=== PATIENT | male | born 1945 ===

== ENCOUNTER 2018-01-04 17:50 | Inpatient (IN) | payer OTHER ==
[2018-01-04 17:50] VITALS: BMI 41.5
[2018-01-04] MEDS ORDERED: Sodium Chloride 0.9% 500 ML IV ONE (18:33)
--- NOTE | 2018-01-04 18:37 | C.PDOC ---
History Of Present Illness 72 year old male, whose PMHx includes CHF and Atrial Fibrillation (currently on Coumadin), presents to the ED for evaluation of dizziness and near-syncopal episode which began today. Patient states he is lightheaded and feels like he is going to "pass out." Patient denies pain, blood in stool, fever, chills, cough. History is limited because patient is a poor historian. Time Seen by Provider: 01/04/18 18:09 Chief Complaint (Nursing): Dizziness/Lightheaded History Per: Patient History/Exam Limitations: no limitations, other (poor historian ) Onset/Duration Of Symptoms: Hrs Associated Symptoms Preceding Syncopal Episode: No Predromal Symptoms (Sudden Onset) Additional History Per: Patient Past Medical History Reviewed: Historical Data, Nursing Documentation, Vital Signs Vital Signs: Last Vital Signs Temp 98.1 F 01/04/18 23:09 Pulse 106 H 01/04/18 23:09 Resp 16 01/04/18 23:09 BP 105/62 01/04/18 23:09 Pulse Ox 96 01/04/18 23:09 - Medical History PMH: Atrial Fibrillation, Cardia Arrhythmia, CHF (diastolic), Colonic Polyps, HTN, Malignancy Denies: Chronic Kidney Disease Surgical History: Appendectomy - [facility] Procedures CYSTOSCOPY NEC (02/15/15) DRAINAGE OF LEFT SPERMATIC CORD, PERCUTANEOUS APPROACH (09/12/15) EXCISION OF PROSTATE, VIA OPENING, DIAGN (09/12/15) MEASUREMENT OF URINARY PRESSURE, VIA OPENING (08/19/15) PLAIN RADIOGRAPHY OF BLADDER USING OTHER CONTRAST (08/19/15) RESECTION OF PROSTATE, ENDO (09/12/15) ULTRASONOGRAPHY OF PROSTATE AND SEMINAL VESICLES (09/12/15) Family History: States: Unknown Family Hx - Social History Hx Alcohol Use: No Hx Substance Use: No - Immunization History Hx Tetanus Toxoid Vaccination: No Hx Influenza Vaccination: No Hx Pneumococcal Vaccination: No Review Of Systems Constitutional: Negative for: Fever, Chills Respiratory: Negative for: Cough Gastrointestinal: Negative for: Hematochezia Neurological: Positive for: Dizziness, Other (near-syncopal episode, lightheadedness ) Physical Exam - Physical Exam Appears: Non-toxic, No Acute Distress, Other (morbidly obese ) Skin: Normal Color, Warm, Dry Head: Atraumatic, Normacephalic Eye(s): bilateral: Normal Inspection Oral Mucosa: Moist Neck: Supple Chest: Symmetrical, No Deformity, No Tenderness Cardiovascular: Rhythm Regular, No Murmur Respiratory: Normal Breath Sounds, No Rales, No Rhonchi, No Wheezing Extremity: Normal ROM, Capillary Refill (less than 2 seconds ), Other (2+ edema to bilateral lower extremities ) Neurological/Psych: Oriented x3, Normal Speech, Normal Cognition ED Course And Treatment - Laboratory Results Result Diagrams: 01/04/18 18:37 01/04/18 18:37 ECG Rhythm: Atrial Fibrillation Rate From EC O2 Sat by Pulse Oximetry: 98 (on RA) Pulse Ox Interpretation: Normal Medical Decision Making Medical Decision Making: near syncope, wekaness- r/o metabolic, infectious cardiac, intracranial etiology - labs imaging penidg Progress: Bloodwork, CXR, EKG, CT Head ordered and reviewed. IV Fluids administered. pt reseasesed. initally b/p 90-100 systolic. no wbc, no la, s/p fluds b/p 120 systolic. cxr cardiomegaly, pulm vasc congestion as read by me. hr 100 w/o rate control. discussed with dr betancur requests dr dodson to admit, dr dang on consult. discusse chepeth dr dodson. accpetd. pt observed in nad, w/o complaint. taking po in nad. Disposition - Disposition Disposition: HOSPITALIZED Disposition Time: 00:35 Condition: STABLE - Clinical Impression Clinical Impression: Dizziness, Near syncope - Scribe Statement The provider has reviewed the documentation as recorded by the Scribe (Phyllis Mcmullen) Provider Attestation: All medical record entries made by the Scribe were at my direction and personally dictated by me. I have reviewed the chart and agree that the record accurately reflects my personal performance of the history, physical exam, medical decision making, and the department course for this patient. I have also personally directed, reviewed, and agree with the discharge instructions and disposition. Decision To Admit - Pt Status Changed To: Hospital Disposition Of: Observation - . Bed Request Type: Telemetry Admitting Physician: Abby Dodson Patient Diagnosis: Dizziness, Near syncope, CHF (congestive heart failure)
[2018-01-04 18:52] LABS: VENOUS BLOOD GAS BASE EXCESS 1.3 mmol/L (0.0-2.0); VENOUS BLOOD GAS PCO2 47 mmHg (40-60); VENOUS BLOOD GAS PO2 25 mm/Hg (30-55); VENOUS BLOOD PH 7.37 (7.32-7.43)
[2018-01-04 18:54] LABS: BASO % 0.2 % (0.0-2.0); EOS % 0.5 % (0.0-4.0); HEMOGLOBIN 13.8 g/dL (12.0-18.0); LYMPH # 1.9 K/uL (1.0-4.3); LYMPH % 28.7 % (20.0-40.0); MEAN CORPUSCULAR HEMOGLOBIN 32.2 pg (27.0-31.0); MEAN PLATELET VOLUME 12.2 fL (7.2-11.7); MONO # 0.4 K/uL (0.0-0.8); MONO % 6.3 % (0.0-10.0); NEUT # 4.2 K/uL (1.8-7.0); NEUT % 64.3 % (50.0-75.0); NRBC % 0.1 % (0.0-2.0); RBC 4.3 Mil/uL (4.40-5.90); RED CELL DISTRIBUTION WIDTH 14.8 % (11.5-14.5); WHITE BLOOD COUNT 6.6 K/uL (4.8-10.8)
[2018-01-04 18:56] LABS: ALB/GLOB RATIO 1.2 (1.0-2.1); ALBUMIN 3.8 g/dL (3.5-5.0); ALT/SGPT 56 U/L (21-72); AST/SGOT 48 U/L (17-59); BLOOD UREA NITROGEN 31 mg/dL (9-20); GFR AFRICAN-AMERICAN > 60; GFR NON-AFRICAN AMERICAN 55
[2018-01-04 18:59] LABS: MEAN CELL VOLUME 94.6 fL (80.0-94.0)
[2018-01-04 19:05] LABS: INR 1.9
[2018-01-04 19:08] LABS: B-TYPE NATRIURETIC PEPTIDE 2060 pg/mL (0-900)
--- NOTE | 2018-01-04 19:43 | CT ---
EXAM: CT Head Without Intravenous Contrast EXAM DATE/TIME: Exam ordered 01/04/2018 6:33 PM CLINICAL HISTORY: 72 years old, male; Signs and symptoms; Dizziness TECHNIQUE: Axial computed tomography images of the head/brain without intravenous contrast. All CT scans at this facility use one or more dose reduction techniques, viz.: automated exposure control; ma/kV adjustment per patient size (including targeted exams where dose is matched to indication; i.e. head); or iterative reconstruction technique. COMPARISON: CT - HEAD W/O CONTRAST 2016-05-24 20:30 FINDINGS: Brain: Unremarkable. No hemorrhage. No significant white matter disease. No edema. Ventricles: Unremarkable. No ventriculomegaly. Bones/joints: Unremarkable. No acute fracture. Soft tissues: Unremarkable. Sinuses: Mild mucosal thickening is noted of the ethmoid air cells. Mastoid air cells: Unremarkable as visualized. No mastoid effusion. IMPRESSION: No acute findings.
[2018-01-04 21:14] LABS: SQUAMOUS EPITHIAL < 1 /hpf (0-5); URINE BILIRUBIN NEGATIVE (NEGATIVE); URINE BLOOD NEGATIVE (NEGATIVE); URINE CLARITY Clear (Clear); URINE COLOR Yellow (YELLOW); URINE GLUCOSE (UA) NORMAL (Normal); URINE LEUKOCYTE ESTERASE NEG Leu/uL (Negative); URINE PROTEIN NEGATIVE (NEGATIVE); URINE UROBILINOGEN NORMAL mg/dL (0.2-1.0)
[2018-01-05 01:42] VITALS: RESP 20
--- NOTE | 2018-01-05 07:13 | RAD ---
Chest x-ray single frontal view History: Chest pain Comparison: 05/24/2016 Findings: Mild venous congestion. Mild patchy increased markings at the left lung base. Top normal heart size. Tortuous aorta. Degenerative changes in the spine and shoulders. Impression: Mild venous congestion. Mild patchy increased markings at the left lung base.
[2018-01-05] MEDS: (Novolog) Insulin Aspart, Recombinant 100 u/ml 10 ml vial SC SCH ×4 (08:05→22:00)
[2018-01-05] MEDS: diltiaZEM 120 mg/24 Hours CD Cap PO SCH (10:14)
[2018-01-05 10:55] LABS: PROTHROMBIN TIME 23.8 SECONDS (9.7-12.2)
[2018-01-05 11:30] LABS: TROPONIN I 0.015 ng/mL (0.00-0.120)
--- NOTE | 2018-01-05 15:12 | CP.PCM.CON ---
History of Present Illness - History of Present Illness History of Present Illness: the patient is a 72 year old man with chronic atrial fibrillation: He has had a labile INR, dose just recently lowered by Dr Jack for bruising. Pt is morbidly obese, likely has slee apnea, and is a diabetic. Echo here in 2015 revealed borderline LV Ef. The pt was at home, had blurred vision, the could not see in both eyes, felt weak, sat down, called 911. Symptoms lasted 5 minutes and gradually improved, and feels OK now. No chest pain or dyspnea. Pt says that his sugar was not low. Pt said that he tried a NOAC a while back but it gave him nausea, and preferred coumadin. He was admitted here a few years ago i the summer with dizziness, but he had no air conditioning, diarrhea ECg shows afib, varying rates, no pause seen. CXR read as increased congestion and BNP is elevated, but upon my review, it appears to be a normal portable film , under penetrated except for cardiomegaly, Pt can lie near flat without dyspnea. Review of Systems - Review of Systems All systems: reviewed and no additional remarkable complaints except (as above) Past Patient History - Infectious Disease Hx of Infectious Diseases: None - Past Medical History & Family History Past Medical History?: Yes - Past Social History Smoking Status: Former Smoker - CARDIAC Hx Atrial Fibrillation: Yes Hx Cardia Arrhythmia: Yes Hx Congestive Heart Failure: Yes (diastolic) Hx Hypertension: Yes - PULMONARY Hx Respiratory Disorders: No - NEUROLOGICAL Hx Neurological Disorder: No - HEENT Hx HEENT Problems: No - RENAL Hx Chronic Kidney Disease: No - ENDOCRINE/METABOLIC Hx Diabetes Mellitus Type 2: Yes - HEMATOLOGICAL/ONCOLOGICAL Hx Blood Disorders: Yes Hx Hepatitis C: Yes - INTEGUMENTARY Hx Dermatological Problems: No - MUSCULOSKELETAL/RHEUMATOLOGICAL Hx Falls: No - GASTROINTESTINAL Hx Gastrointestinal Disorders: No - GENITOURINARY/GYNECOLOGICAL Hx Genitourinary Disorders: Yes ("FREQUENCY") Hx Hematuria: Yes Hx Prostate Problems: Yes Other/Comment: ELEVATED PSA - PSYCHIATRIC Hx Substance Use: No - SURGICAL HISTORY Hx Appendectomy: Yes - ANESTHESIA Hx Anesthesia: Yes Hx Anesthesia Reactions: No Hx Malignant Hyperthermia: No Meds Allergies/Adverse Reactions: Allergies Allergy/AdvReac Type Severity Reaction Status Date / Time No Known Allergies Allergy Verified 01/04/18 18:28 - Medications Medications: Current Medications Acetaminophen (Tylenol 325mg Tab) 650 mg PO Q6 PRN PRN Reason: Headache Last Admin: 01/05/18 05:36 Dose: 650 mg Aspirin (Ecotrin) 81 mg PO DAILY [facility] Last Admin: 01/05/18 10:13 Dose: 81 mg Digoxin (Lanoxin) 0.25 mg PO DAILY@1800 [facility] Diltiazem HCl (Cardizem Cd) 120 mg PO DAILY [facility] Last Admin: 01/05/18 10:14 Dose: 120 mg Enalapril Maleate (Vasotec) 10 mg PO BID [facility] Last Admin: 01/05/18 10:13 Dose: 10 mg Furosemide (Lasix) 40 mg IVP Q12 [facility] Last Admin: 01/04/18 23:03 Dose: Not Given Furosemide (Lasix) 40 mg PO DAILY [facility] Last Admin: 01/05/18 10:13 Dose: 40 mg Glimepiride (Amaryl) 2 mg PO DAILY [facility] Last Admin: 01/05/18 10:13 Dose: 2 mg Insulin Aspart (Novolog) 0 unit SC ACHS [facility] PRN Reason: Protocol Last Admin: 01/05/18 13:04 Dose: 1 unit Pneumococcal Polyvalent Vaccine (Pneumovax 23 Vaccine) 0.5 ml IM .ONCE ONE Stop: 01/06/18 10:01 Rosuvastatin Calcium (Crestor) 10 mg PO [facility] Tamsulosin HCl (Flomax) 0.4 mg PO DAILY [facility] Last Admin: 01/05/18 10:13 Dose: 0.4 mg Warfarin Sodium (Coumadin) 3 mg PO 1800 [facility] Stop: 01/05/18 18:01 Physical Exam - Constitutional Appears: No Acute Distress - Head Exam Head Exam: ATRAUMATIC, NORMAL INSPECTION - Eye Exam Eye Exam: EOMI - ENT Exam ENT Exam: Mucous Membranes Moist - Respiratory Exam Respiratory Exam: Clear to Auscultation Bilateral - Cardiovascular Exam Cardiovascular Exam: Irregular Rhythm - GI/Abdominal Exam GI & Abdominal Exam: Normal Bowel Sounds - Extremities Exam Extremities exam: Positive for: normal inspection - Back Exam Back exam: NORMAL INSPECTION - Neurological Exam Neurological exam: Alert, CN II-XII Intact, Oriented x3 - Psychiatric Exam Psychiatric exam: Normal Affect, Normal Mood - Skin Skin Exam: Normal Color Results - Vital Signs Recent Vital Signs: Last Vital Signs Temp 97.5 F L 01/05/18 08:19 Pulse 89 01/05/18 08:19 Resp 20 01/05/18 08:19 BP 124/80 01/05/18 10:13 Pulse Ox 95 01/05/18 08:19 - Labs Result Diagrams: 01/04/18 18:37 01/04/18 18:37 Labs: Laboratory Results - last 24 hr 01/04/18 01/04/18 01/04/18 18:30 18:37 18:37 WBC 6.6 RBC 4.30 L Hgb 13.8 Hct 40.7 MCV 94.6 H D MCH 32.2 H MCHC 34.0 RDW 14.8 H Plt Count 114 L D MPV 12.2 H Neut % (Auto) 64.3 Lymph % (Auto) 28.7 Tompkins % (Auto) 6.3 Eos % (Auto) 0.5 Baso % (Auto) 0.2 Neut # (Auto) 4.2 Lymph # (Auto) 1.9 Tompkins # (Auto) 0.4 Eos # (Auto) 0.0 Baso # (Auto) 0.0 Differential Comment PT 22.0 H INR 1.9 APTT 32 D-Dimer, Quantitative pO2 VBG pH VBG pCO2 VBG HCO3 VBG Total CO2 VBG O2 Sat (Calc) VBG Base Excess VBG Potassium Glucose Lactate Sodium Potassium Chloride Carbon Dioxide Anion Gap BUN Creatinine Est GFR ( Amer) Est GFR (Non-Af Amer) POC Glucose (mg/dL) 138 H Random Glucose Calcium Total Bilirubin AST ALT Alkaline Phosphatase Troponin I NT-Pro-B Natriuret Pep Total Protein Albumin Globulin Albumin/Globulin Ratio TSH 3rd Generation Venous Blood Potassium Urine Color Urine Clarity Urine pH Ur Specific [place] Urine Protein Urine Glucose (UA) Urine Ketones Urine Blood Urine Nitrate Urine Bilirubin Urine Urobilinogen Ur Leukocyte Esterase Urine WBC (Auto) Urine RBC (Auto) Ur Squamous Epith Cells Digoxin 01/04/18 01/04/18 01/04/18 18:37 18:44 18:49 WBC RBC Hgb Hct MCV MCH MCHC RDW Plt Count MPV Neut % (Auto) Lymph % (Auto) Tompkins % (Auto) Eos % (Auto) Baso % (Auto) Neut # (Auto) Lymph # (Auto) Tompkins # (Auto) Eos # (Auto) Baso # (Auto) Differential Comment PT INR APTT D-Dimer, Quantitative pO2 25 L VBG pH 7.37 VBG pCO2 47 VBG HCO3 24.5 VBG Total CO2 28.6 H VBG O2 Sat (Calc) 58.2 VBG Base Excess 1.3 VBG Potassium 3.7 Glucose 135 H Lactate 1.3 Sodium 140 138.0 Potassium 4.0 Chloride 102 107.0 Carbon Dioxide 26 Anion Gap 16 BUN 31 H Creatinine 1.3 Est GFR ( Amer) > 60 Est GFR (Non-Af Amer) 55 POC Glucose (mg/dL) Random Glucose 142 H Calcium 9.0 Total Bilirubin 0.9 AST 48 ALT 56 Alkaline Phosphatase 36 L Troponin I 0.0280 NT-Pro-B Natriuret Pep 2060 H Total Protein 7.0 Albumin 3.8 Globulin 3.2 Albumin/Globulin Ratio 1.2 TSH 3rd Generation Venous Blood Potassium 3.7 Urine Color Urine Clarity Urine pH Ur Specific [place] Urine Protein Urine Glucose (UA) Urine Ketones Urine Blood Urine Nitrate Urine Bilirubin Urine Urobilinogen Ur Leukocyte Esterase Urine WBC (Auto) Urine RBC (Auto) Ur Squamous Epith Cells Digoxin < 0.4 L 01/04/18 01/05/18 01/05/18 21:07 02:04 10:38 WBC RBC Hgb Hct MCV MCH MCHC RDW Plt Count MPV Neut % (Auto) Lymph % (Auto) [place]kins % (Auto) Eos % (Auto) Baso % (Auto) Neut # (Auto) Lymph # (Auto) [place]kins # (Auto) Eos # (Auto) Baso # (Auto) Differential Comment PT INR APTT D-Dimer, Quantitative pO2 VBG pH VBG pCO2 VBG HCO3 VBG Total CO2 VBG O2 Sat (Calc) VBG Base Excess VBG Potassium Glucose Lactate Sodium Potassium Chloride Carbon Dioxide Anion Gap BUN Creatinine Est GFR ( Amer) Est GFR (Non-Af Amer) POC Glucose (mg/dL) Random Glucose Calcium Total Bilirubin AST ALT Alkaline Phosphatase Troponin I 0.0140 0.0150 NT-Pro-B Natriuret Pep Total Protein Albumin Globulin Albumin/Globulin Ratio TSH 3rd Generation 0.92 Venous Blood Potassium Urine Color Yellow Urine Clarity Clear Urine pH 6.0 Ur Specific [place] 1.011 Urine Protein Negative Urine Glucose (UA) Normal Urine Ketones Negative Urine Blood Negative Urine Nitrate Negative Urine Bilirubin Negative Urine Urobilinogen Normal Ur Leukocyte Esterase Neg Urine WBC (Auto) 1 Urine RBC (Auto) 1 Ur Squamous Epith Cells < 1 Digoxin 01/05/18 01/05/18 10:38 13:43 WBC RBC Hgb Hct MCV MCH MCHC RDW Plt Count MPV Neut % (Auto) Lymph % (Auto) Tompkins % (Auto) Eos % (Auto) Baso % (Auto) Neut # (Auto) Lymph # (Auto) [place] # (Auto) Eos # (Auto) Baso # (Auto) Differential Comment PT 23.8 H INR 2.0 APTT D-Dimer, Quantitative < 200 pO2 VBG pH VBG pCO2 VBG HCO3 VBG Total CO2 VBG O2 Sat (Calc) VBG Base Excess VBG Potassium Glucose Lactate Sodium Potassium Chloride Carbon Dioxide Anion Gap BUN Creatinine Est GFR ( Amer) Est GFR (Non-Af Amer) POC Glucose (mg/dL) Random Glucose Calcium Total Bilirubin AST ALT Alkaline Phosphatase Troponin I NT-Pro-B Natriuret Pep Total Protein Albumin Globulin Albumin/Globulin Ratio TSH 3rd Generation Venous Blood Potassium Urine Color Urine Clarity Urine pH Ur Specific [place] Urine Protein Urine Glucose (UA) Urine Ketones Urine Blood Urine Nitrate Urine Bilirubin Urine Urobilinogen Ur Leukocyte Esterase Urine WBC (Auto) Urine RBC (Auto) Ur Squamous Epith Cells Digoxin - EKG Data EKG Interpreted by: Myself (as hawa) Assessment & Plan - Assessment and Plan (Free Text) Assessment: 1. Dizziness, near syncope: many potential possibilities: A. possible TIA; Head ct is negative: consider MRI. Although INR is 2.1, it has been low emmanuelle, but is only low normal and there may periods of sub-therapeutic INR. Consider changing to a different NOAC (I will review office chart) - pradaxa is known to cause nausea but not the others b. Possibly A slow period in afib: if no pauses seen on telemetry, then 3 week outpatient holter monitor is advised.If long pauses, then PPM would be advised c. Possible Orthostasis: pt says that his bp is about 112 systolic at home. If dizziness recurs, and no other obvious cause, then will advise outpatient tilt table study. However, bp is consistency over 120 systolic here. Orthostatic bp checks ordered. 2. Although bnp is high, this is commonly seen in afib patients. CXR by my review is clear and pt jhas clear lungs on exam, no dyspnea and can lie flat. If no recent outpatient echo, then another can be ordered as BNP is high. I will check office chart.
[2018-01-05] MEDS: Digoxin 250 mcg (0.25 mg) Tab PO SCH (18:22)
--- NOTE | 2018-01-06 00:16 | CP.PCM.HP ---
History of Present Illness - History of Present Illness History of Present Illness: CC: Dizziness and Feeling of Passing Out History of Present Illness: A Poor Historian A 72 year old male, whose PMHx includes CHF and Atrial Fibrillation (currently on Coumadin), presents to the ED for evaluation of dizziness and near-syncopal episode which began today. Patient states he is lightheaded and feels like he is going to "pass out." Patient denies pain, blood in stool, fever, chills, cough. In the ER, he was found to have CHF exacerbation and A.fib with RVR. ; lmost therapeutic INR. Present on Admission - Present on Admission Any Indicators Present on Admission: Yes Review of Systems - Review of Systems All systems: reviewed and no additional remarkable complaints except Past Patient History - Infectious Disease Hx of Infectious Diseases: None - Past Medical History & Family History Past Medical History?: Yes Past Family History: Reviewed and not pertinent - Past Social History Smoking Status: Former Smoker Alcohol: None Drugs: Denies - CARDIAC Hx Atrial Fibrillation: Yes Hx Cardia Arrhythmia: Yes Hx Congestive Heart Failure: Yes (diastolic) Hx Hypertension: Yes - PULMONARY Hx Respiratory Disorders: No - NEUROLOGICAL Hx Neurological Disorder: No - HEENT Hx HEENT Problems: No - RENAL Hx Chronic Kidney Disease: No - ENDOCRINE/METABOLIC Hx Diabetes Mellitus Type 2: Yes - HEMATOLOGICAL/ONCOLOGICAL Hx Blood Disorders: Yes Hx Hepatitis C: Yes - INTEGUMENTARY Hx Dermatological Problems: No - MUSCULOSKELETAL/RHEUMATOLOGICAL Hx Falls: No - GASTROINTESTINAL Hx Gastrointestinal Disorders: No - GENITOURINARY/GYNECOLOGICAL Hx Genitourinary Disorders: Yes ("FREQUENCY") Hx Hematuria: Yes Hx Prostate Problems: Yes Other/Comment: ELEVATED PSA - PSYCHIATRIC Hx Substance Use: No - SURGICAL HISTORY Hx Appendectomy: Yes - ANESTHESIA Hx Anesthesia: Yes Hx Anesthesia Reactions: No Hx Malignant Hyperthermia: No Meds Home Medications: Home Medication List Medication Instructions Recorded Confirmed Type Acetaminophen [Tylenol 325mg tab] 650 mg PO Q6 PRN tab 01/07/18 Rx Metoprolol Succinate 100 mg PO DAILY #30 tab.er.24h 01/07/18 Rx Warfarin [Coumadin] 3 mg PO 1800 tab 01/07/18 Rx Allergies/Adverse Reactions: Allergies Allergy/AdvReac Type Severity Reaction Status Date / Time No Known Allergies Allergy Verified 01/04/18 18:28 Physical Exam - Constitutional Appears: Well, No Acute Distress - Head Exam Head Exam: ATRAUMATIC, NORMAL INSPECTION, NORMOCEPHALIC - Eye Exam Eye Exam: EOMI, Normal appearance, PERRL Pupil Exam: NORMAL ACCOMODATION, PERRL - ENT Exam ENT Exam: Mucous Membranes Moist, Normal Exam, Normal External Ear Exam - Neck Exam Neck exam: Positive for: Normal Inspection - Respiratory Exam Respiratory Exam: Clear to Auscultation Bilateral, Rales. absent: Wheezes - Cardiovascular Exam Cardiovascular Exam: Tachycardia, Irregular Rhythm, +S1, +S2 - GI/Abdominal Exam GI & Abdominal Exam: Normal Bowel Sounds, Soft. absent: Tenderness - Extremities Exam Extremities exam: Positive for: full ROM, normal inspection - Back Exam Back exam: NORMAL INSPECTION - Neurological Exam Neurological exam: Alert, CN II-XII Intact, Normal Gait, Oriented x3, Reflexes Normal - Psychiatric Exam Psychiatric exam: Normal Affect, Normal Mood - Skin Skin Exam: Dry, Intact, Normal Color, Warm Results - Vital Signs Recent Vital Signs: Last Vital Signs Temp 98.2 F 01/05/18 15:07 Pulse 93 H 01/05/18 16:00 Resp 20 01/05/18 15:07 BP 101/63 01/05/18 21:51 Pulse Ox 96 01/05/18 15:07 - Labs Result Diagrams: 01/06/18 06:18 01/07/18 07:11 Labs: Laboratory Results - last 24 hr 01/05/18 01/05/18 01/05/18 02:04 06:22 10:38 PT INR D-Dimer, Quantitative POC Glucose (mg/dL) 96 Troponin I 0.0140 0.0150 TSH 3rd Generation 0.92 01/05/18 01/05/18 01/05/18 10:38 11:24 13:43 PT 23.8 H INR 2.0 D-Dimer, Quantitative < 200 POC Glucose (mg/dL) 164 H Troponin I TSH 3rd Generation 01/05/18 01/05/18 16:40 21:19 PT INR D-Dimer, Quantitative POC Glucose (mg/dL) 123 H 108 Troponin I TSH 3rd Generation - EKG Data Rate: Tachycardia - Imaging and Cardiology Chest x-ray Status: Report reviewed by me Additional comment: Chest x-ray single frontal view History: Chest pain Comparison: 05/24/2016 Findings: Mild venous congestion. Mild patchy increased markings at the left lung base. Top normal heart size. Tortuous aorta. Degenerative changes in the spine and shoulders. Impression: Mild venous congestion. Mild patchy increased markings at the left lung base. CT scan - head Status: Report reviewed by me Additional comment: No Acute finding Assessment & Plan (1) CHF (congestive heart failure) Assessment and Plan: IV Lasix TTE ASA Srrial trop and EKG Fastig LIPid Profile Status: Acute Priority: High (2) Atrial fibrillation with rapid ventricular response Assessment and Plan: Near Syncope Therapeutic INR Continue Coumadin 3mg daily Cardizem TSH TTE Status: Acute Priority: High (3) HTN (hypertension), benign Status: Chronic Priority: Medium
[2018-01-06 06:24] LABS: HEMOGLOBIN 13.5 g/dL (12.0-18.0); MEAN CELL VOLUME 94.4 fL (80.0-94.0); MEAN CORPUSCULAR HEMOGLOBIN 31.4 pg (27.0-31.0); MEAN CORPUSCULAR HGB CONC 33.2 g/dL (33.0-37.0); RBC 4.31 Mil/uL (4.40-5.90); RED CELL DISTRIBUTION WIDTH 14.3 % (11.5-14.5); WHITE BLOOD COUNT 5.1 K/uL (4.8-10.8)
[2018-01-06 06:28] LABS: INR 2.4; PROTHROMBIN TIME 27.4 SECONDS (9.7-12.2)
[2018-01-06 06:42] LABS: BLOOD UREA NITROGEN 21 mg/dL (9-20); CALCIUM 8.4 mg/dl (8.6-10.4); GFR AFRICAN-AMERICAN > 60; GFR NON-AFRICAN AMERICAN > 60
[2018-01-06] MEDS: (Novolog) Insulin Aspart, Recombinant 100 u/ml 10 ml vial SC SCH ×4 (08:43→22:00)
[2018-01-06] MEDS: diltiaZEM 120 mg/24 Hours CD Cap PO SCH (09:25)
[2018-01-06] MEDS ORDERED: Pneumococcal 23-Valent Vaccine IM ONE (10:00)
--- NOTE | 2018-01-06 10:22 | CP.PCM.PN ---
Subjective - Date & Time of Evaluation Date of Evaluation: 01/06/18 Time of Evaluation: 10:21 - Subjective Subjective: I reviewed office notes and a recent echo demonstrated and LV EF of about 30%. Plan: stop cardezem, start beta violeta: will discuss events with ela teacher. Objective - Vital Signs/Intake and Output Vital Signs (last 24 hours): Temp Pulse Resp BP Pulse Ox 97.2 F L 71 20 124/83 95 01/06/18 08:13 01/06/18 08:13 01/06/18 08:13 01/06/18 09:25 01/06/18 08:13 - Medications Medications: Current Medications Acetaminophen (Tylenol 325mg Tab) 650 mg PO Q6 PRN PRN Reason: Headache Last Admin: 01/05/18 05:36 Dose: 650 mg Aspirin (Ecotrin) 81 mg PO DAILY [facility] Last Admin: 01/06/18 09:25 Dose: 81 mg Digoxin (Lanoxin) 0.25 mg PO DAILY@1800 [facility] Last Admin: 01/05/18 18:22 Dose: 0.25 mg Diltiazem HCl (Cardizem Cd) 120 mg PO DAILY [facility] Last Admin: 01/06/18 09:25 Dose: 120 mg Enalapril Maleate (Vasotec) 10 mg PO BID [facility] Last Admin: 01/06/18 09:24 Dose: 10 mg Furosemide (Lasix) 40 mg IVP Q12 [facility] Last Admin: 01/06/18 09:26 Dose: Not Given Insulin Aspart (Novolog) 0 unit SC ACHS [facility] PRN Reason: Protocol Last Admin: 01/06/18 08:43 Dose: Not Given Metoprolol Succinate (Toprol Xl) 50 mg PO DAILY [facility] Rosuvastatin Calcium (Crestor) 10 mg PO HS [facility] Last Admin: 01/05/18 21:51 Dose: 10 mg Tamsulosin HCl (Flomax) 0.4 mg PO DAILY [facility] Last Admin: 01/06/18 09:25 Dose: 0.4 mg - Labs Labs: 01/06/18 06:18 01/06/18 06:18 PT 27.4 SECONDS (9.7-12.2) H 01/06/18 06:18 INR 2.4 01/06/18 06:18 APTT 32 SECONDS (21-34) 01/04/18 18:37
[2018-01-06] MEDS: Metoprolol Succinate 50 mg XL Tab PO SCH (12:04)
[2018-01-06] MEDS ORDERED: Potassium Chloride 20 mEq ER Tab PO ONE (15:00)
--- NOTE | 2018-01-06 15:53 | CARD ---
APPROVED REPORT EXAM: Two-dimensional and M-mode echocardiogram with Doppler and color Doppler. Other Information Quality : AverageRhythm : NSR INDICATION Dizziness and Vertigo Syncope Congestive Heart Failure RISK FACTORS Hypertension Diabetes M-Mode DIMENSIONS Left Atrium (MM)4.92 (2.5-4.0cm)IVSd0.59 (0.7-1.1cm) Aortic Root3.05 (2.2-3.7cm)LVDd5.51 (4.0-5.6cm) Aortic Cusp Exc.1.91 (1.5-2.0cm)PWd0.94 (0.7-1.1cm) FS (%) 21 %LVDs4.37 (2.0-3.8cm) LVEF (%)42 (>50%) Aortic Valve AoV Peak Nmplscyc566.2cm/Tree Peak GR.6mmHg Mitral Valve MV E Fnbdglry11.2cm/sMV A Towdrhhk37.2cm/sE/A ratio1.8 TDI E/Lateral E'0.0E/Medial E'0.0 Tricuspid Valve TR Peak [id number]/sTR Peak Gr.[id number] LEFT VENTRICLE The left ventricle is normal size. There is borderline left ventricular hypertrophy. Suboptimal with a poor window, likely depressed left ventricular contractility however I'm not able to comment on the wall motion abnormalities and the ejection fraction is probably between 35 from 40% Atrial fibrillation There is no ventricular septal defect visualized. RIGHT VENTRICLE The right ventricle is normal size. The right ventricular systolic function is normal. ATRIA The left atrium is mildly dilated. The right atrium size is normal. AORTIC VALVE The aortic valve is mildly sclerotic. The aortic valve is tri-cuspid. Not well-visualized probably no regurgitation Probably no stenosis MITRAL VALVE The mitral valve is not well visualized. Probable no prolapse There is no mitral valve regurgitation noted. TRICUSPID VALVE The tricuspid valve is not well visualized. Unclear regurgitation PULMONIC VALVE The pulmonic valve is not well visualized. GREAT VESSELS The aortic root is normal in size. The IVC is normal in size and collapses >50% with inspiration. PERICARDIAL EFFUSION There is no pericardial effusion. <Conclusion> Suboptimal with a poor window, likely depressed left ventricular contractility however I'm not able to comment on the wall motion abnormalities and the ejection fraction is probably between 35 from 40% Atrial fibrillation Suboptimal with a poor acoustic window and incomplete
[2018-01-06] MEDS: Digoxin 250 mcg (0.25 mg) Tab PO SCH (18:20)
--- NOTE | 2018-01-07 01:01 | CP.PCM.PN ---
Subjective - Date & Time of Evaluation Date of Evaluation: 01/06/18 Time of Evaluation: 14:00 - Subjective Subjective: Seen and Examined at the bed side. Continue to complain dizziness. SOB improved , and leg swelling persisted worse on the left Lower xtrmity. D-dimer and Trops are negative. Cardiology recommendation appreciated. As per the Ski Lift Attendant, recent echo showed EF 30% and patient may need EPS if the dizziness continues. Repeat TTE pending. Objective - Vital Signs/Intake and Output Vital Signs (last 24 hours): Temp Pulse Resp BP Pulse Ox 98.0 F 88 20 95/67 L 95 01/06/18 15:34 01/06/18 15:34 01/06/18 15:34 01/06/18 21:30 01/06/18 15:34 - Medications Medications: Current Medications Acetaminophen (Tylenol 325mg Tab) 650 mg PO Q6 PRN PRN Reason: Headache Last Admin: 01/05/18 05:36 Dose: 650 mg Aspirin (Ecotrin) 81 mg PO DAILY [facility] Last Admin: 01/06/18 09:25 Dose: 81 mg Digoxin (Lanoxin) 0.25 mg PO DAILY@1800 [facility] Last Admin: 01/06/18 18:20 Dose: 0.25 mg Diltiazem HCl (Cardizem Cd) 120 mg PO DAILY [facility] Last Admin: 01/06/18 09:25 Dose: 120 mg Enalapril Maleate (Vasotec) 10 mg PO BID [facility] Last Admin: 01/06/18 21:30 Dose: Not Given Furosemide (Lasix) 40 mg PO DAILY [facility] Insulin Aspart (Novolog) 0 unit SC ACHS [facility] PRN Reason: Protocol Last Admin: 01/06/18 22:00 Dose: Not Given Metoprolol Succinate (Toprol Xl) 50 mg PO DAILY [facility] Last Admin: 01/06/18 12:04 Dose: 50 mg Rosuvastatin Calcium (Crestor) 10 mg PO HS [facility] Last Admin: 01/06/18 22:27 Dose: 10 mg Spironolactone (Aldactone) 25 mg PO DAILY [facility] Tamsulosin HCl (Flomax) 0.4 mg PO DAILY [facility] Last Admin: 01/06/18 09:25 Dose: 0.4 mg - Labs Labs: 01/06/18 06:18 01/06/18 06:18 PT 27.4 SECONDS (9.7-12.2) H 01/06/18 06:18 INR 2.4 01/06/18 06:18 APTT 32 SECONDS (21-34) 01/04/18 18:37 - Constitutional Appears: Well, No Acute Distress - Head Exam Head Exam: ATRAUMATIC, NORMAL INSPECTION, NORMOCEPHALIC - Eye Exam Eye Exam: EOMI, Normal appearance, PERRL Pupil Exam: NORMAL ACCOMODATION, PERRL - ENT Exam ENT Exam: Mucous Membranes Moist, Normal Exam - Neck Exam Neck Exam: Full ROM, Normal Inspection. absent: Lymphadenopathy - Respiratory Exam Respiratory Exam: Clear to Ausculation Bilateral, NORMAL BREATHING PATTERN - Cardiovascular Exam Cardiovascular Exam: REGULAR RHYTHM, +S1, +S2. absent: Murmur - GI/Abdominal Exam GI & Abdominal Exam: Soft, Normal Bowel Sounds. absent: Tenderness - Back Exam Back Exam: Full ROM, NORMAL INSPECTION - Neurological Exam Neurological Exam: Alert, Awake, CN II-XII Intact, Normal Gait, Oriented x3 - Psychiatric Exam Psychiatric exam: Normal Affect, Normal Mood - Skin Skin Exam: Dry, Intact, Normal Color, Warm Assessment and Plan (1) CHF (congestive heart failure) Assessment & Plan: Severe Cardiomyopathy IV Lasix O2 Via NC TTE- pending ASA Serial Trop and EKG Fasting Lipid Profile Ski Lift Attendant on Board Change to admission Status: Acute (2) Atrial fibrillation with rapid ventricular response, Nearsyncope Assessment and Plan: Therapeutic INR Continue Coumadin 3mg daily Cardizem TSH TTE Status: Acute (3) HTN (hypertension), benign Status: Chronic Priority: Medium Status: Chronic
[2018-01-07 07:28] LABS: INR 2.2; PROTHROMBIN TIME 25.6 SECONDS (9.7-12.2)
--- NOTE | 2018-01-07 07:28 | CARD ---
APPROVED REPORT EKG Measurement Heart [id number] <Conclusion> Atrial fibrillation with rapid ventricular response with premature ventricular or aberrantly conducted complexes Abnormal ECG
[2018-01-07 07:34] LABS: BLOOD UREA NITROGEN 20 mg/dL (9-20); CALCIUM 8.5 mg/dl (8.6-10.4); GFR AFRICAN-AMERICAN > 60; GFR NON-AFRICAN AMERICAN > 60
[2018-01-07] MEDS: (Novolog) Insulin Aspart, Recombinant 100 u/ml 10 ml vial SC SCH ×3 (08:00→17:00)
[2018-01-07] MEDS: diltiaZEM 120 mg/24 Hours CD Cap PO SCH ×2 (11:00→11:03)
[2018-01-07] MEDS: Metoprolol Succinate 50 mg XL Tab PO SCH (11:05)
[2018-01-07 16:33] VITALS: BP 110/71; TEMP 98; O2SAT 96
[2018-01-07] MEDS ORDERED: Metoprolol Succinate 100 mg XL Tab PO SCH (17:21)
--- NOTE | 2018-01-07 17:30 | CP.PCM.DIS ---
Provider - Provider Date of Admission: 01/06/18 15:42 Attending physician: Abby Lopez MD Time Spent in preparation of Discharge (in minutes): 25 Diagnosis - Discharge Diagnosis (1) CHF (congestive heart failure) Status: Acute Priority: High (2) Near syncope Status: Acute (3) Atrial fibrillation with rapid ventricular response Status: Acute Priority: High (4) HTN (hypertension) Status: Chronic Priority: Medium Hospital Course - Lab Results Lab Results: Most Recent Lab Values WBC 5.1 K/uL (4.8-10.8) 01/06/18 06:18 RBC 4.31 Mil/uL (4.40-5.90) L 01/06/18 06:18 Hgb 13.5 g/dL (12.0-18.0) 01/06/18 06:18 Hct 40.6 % (35.0-51.0) 01/06/18 06:18 MCV 94.4 fL (80.0-94.0) H 01/06/18 06:18 MCH 31.4 pg (27.0-31.0) H 01/06/18 06:18 MCHC 33.2 g/dL (33.0-37.0) 01/06/18 06:18 RDW 14.3 % (11.5-14.5) 01/06/18 06:18 Plt Count 101 K/uL (130-400) L 01/06/18 06:18 MPV 12.0 fL (7.2-11.7) H 01/06/18 06:18 Neut % (Auto) 64.3 % (50.0-75.0) 01/04/18 18:37 Lymph % (Auto) 28.7 % (20.0-40.0) 01/04/18 18:37 [place] % (Auto) 6.3 % (0.0-10.0) 01/04/18 18:37 Eos % (Auto) 0.5 % (0.0-4.0) 01/04/18 18:37 Baso % (Auto) 0.2 % (0.0-2.0) 01/04/18 18:37 Neut # (Auto) 4.2 K/uL (1.8-7.0) 01/04/18 18:37 Lymph # (Auto) 1.9 K/uL (1.0-4.3) 01/04/18 18:37 [place] # (Auto) 0.4 K/uL (0.0-0.8) 01/04/18 18:37 Eos # (Auto) 0.0 K/uL (0.0-0.7) 01/04/18 18:37 Baso # (Auto) 0.0 K/uL (0.0-0.2) 01/04/18 18:37 Differential Comment 01/04/18 18:37 PT 25.6 SECONDS (9.7-12.2) H 01/07/18 07:11 INR 2.2 01/07/18 07:11 APTT 32 SECONDS (21-34) 01/04/18 18:37 D-Dimer, Quantitative < 200 ng/mlDDU (0-243) 01/05/18 13:43 pO2 25 mm/Hg (30-55) L 01/04/18 18:49 VBG pH 7.37 (7.32-7.43) 01/04/18 18:49 VBG pCO2 47 mmHg (40-60) 01/04/18 18:49 VBG HCO3 24.5 mmol/L 01/04/18 18:49 VBG Total CO2 28.6 mmol/L (22-28) H 01/04/18 18:49 VBG O2 Sat (Calc) 58.2 % (40-65) 01/04/18 18:49 VBG Base Excess 1.3 mmol/L (0.0-2.0) 01/04/18 18:49 VBG Potassium 3.7 mmol/L (3.6-5.2) 01/04/18 18:49 Sodium 138.0 mmol/l (132-148) 01/04/18 18:49 Chloride 107.0 mmol/L (98-107) 01/04/18 18:49 Glucose 135 mg/dl (75-110) H 01/04/18 18:49 Lactate 1.3 mmol/L (0.7-2.1) 01/04/18 18:49 Sodium 140 mmol/L (132-148) 01/07/18 07:11 Potassium 3.7 mmol/L (3.6-5.2) 01/07/18 07:11 Chloride 103 mmol/L (98-107) 01/07/18 07:11 Carbon Dioxide 27 mmol/L (22-30) 01/07/18 07:11 Anion Gap 14 (10-20) 01/07/18 07:11 BUN 20 mg/dL (9-20) 01/07/18 07:11 Creatinine 0.9 mg/dL (0.8-1.5) 01/07/18 07:11 Est GFR ( Amer) > 60 01/07/18 07:11 Est GFR (Non-Af Amer) > 60 01/07/18 07:11 POC Glucose (mg/dL) 119 mg/dL (65-110) H 01/07/18 17:02 Random Glucose 87 mg/dL (75-110) 01/07/18 07:11 Calcium 8.5 mg/dl (8.6-10.4) L 01/07/18 07:11 Total Bilirubin 0.9 mg/dL (0.2-1.3) 01/04/18 18:37 AST 48 U/L (17-59) 01/04/18 18:37 ALT 56 U/L (21-72) 01/04/18 18:37 Alkaline Phosphatase 36 U/L (38-126) L 01/04/18 18:37 Troponin I 0.0150 ng/mL (0.00-0.120) 01/05/18 10:38 NT-Pro-B Natriuret Pep 2060 pg/mL (0-900) H 01/04/18 18:37 Total Protein 7.0 g/dL (6.3-8.3) 01/04/18 18:37 Albumin 3.8 g/dL (3.5-5.0) 01/04/18 18:37 Globulin 3.2 gm/dL (2.2-3.9) 01/04/18 18:37 Albumin/Globulin Ratio 1.2 (1.0-2.1) 01/04/18 18:37 TSH 3rd Generation 0.92 mIU/L (0.46-4.68) 01/05/18 10:38 Venous Blood Potassium 3.7 mmol/L (3.6-5.2) 01/04/18 18:49 Urine Color Yellow (YELLOW) 01/04/18 21:07 Urine Clarity Clear (Clear) 01/04/18 21:07 Urine pH 6.0 (5.0-8.0) 01/04/18 21:07 Ur Specific [place] 1.011 (1.003-1.030) 01/04/18 21:07 Urine Protein Negative mg/dL (NEGATIVE) 01/04/18 21:07 Urine Glucose (UA) Normal mg/dL (Normal) 01/04/18 21:07 Urine Ketones Negative mg/dL (NEGATIVE) 01/04/18 21:07 Urine Blood Negative (NEGATIVE) 01/04/18 21:07 Urine Nitrate Negative (NEGATIVE) 01/04/18 21:07 Urine Bilirubin Negative (NEGATIVE) 01/04/18 21:07 Urine Urobilinogen Normal mg/dL (0.2-1.0) 01/04/18 21:07 Ur Leukocyte Esterase Neg [place]/uL (Negative) 01/04/18 21:07 Urine WBC (Auto) 1 /hpf (0-5) 01/04/18 21:07 Urine RBC (Auto) 1 /hpf (0-3) 01/04/18 21:07 Ur Squamous Epith Cells < 1 /hpf (0-5) 01/04/18 21:07 Digoxin < 0.4 ng/mL (0.8-2.0) L 01/04/18 18:44 Discharge Exam - Head Exam Head Exam: ATRAUMATIC Discharge Plan - Discharge Medications Prescriptions: Metoprolol Succinate 100 mg PO DAILY #30 tab.er.24h - Follow Up Plan Condition: STABLE Disposition: HOME/ ROUTINE Instructions: Heart Healthy Diet, Heart Failure, Adult (DC), Syncope (Fainting ) (DC), Dizziness, Nonvertigo, (DC), Warfarin, Heart Failure (DC), Heart Failure (GEN), Pacemaker (DC), Pacemaker (GEN), Pulmonary Edema (DC), Pulmonary Edema (GEN), Ascites (DC), Ascites (GEN) Referrals: Huey Jack MD [Staff Provider] - 1 Week
[2018-01-07] MEDS: Digoxin 250 mcg (0.25 mg) Tab PO SCH (18:33)
[2018-01-07 18:34] VITALS: PULSE 92
[2018-01-08 01:32] VITALS: PULSE 92
== END 2018-01-07 20:30 | disposition home or self-care (01) | DRG 292 ==
LOC: C.ER 17:50 → C.9E 20:01 → C.6T 22:39 → OBSVTOIN 01-06 15:42
PROVIDERS: ADMIT Internal Medicine; ATTEND Internal Medicine
DX: I11.0 Hypertensive heart disease with heart failure (principal); I50.33 Acute on chronic diastolic (congestive) heart failure; R55 Syncope and collapse; I48.2 Chronic atrial fibrillation; E11.9 Type 2 diabetes mellitus without complications; E66.01 Morbid (severe) obesity due to excess calories; R79.1 Abnormal coagulation profile; G47.30 Sleep apnea, unspecified; Z68.42 Body mass index [BMI] 45.0-49.9, adult; Z79.01 Long term (current) use of anticoagulants; Z86.010 Personal history of colon polyps; Z87.891 Personal history of nicotine dependence; Z90.49 Acquired absence of other specified parts of digestive tract